=== PATIENT | female | born 1950 | race Hispanic/Latino ===

== ENCOUNTER → 2016-03-19 | Outpatient (CLI) | payer OTHER ==
--- NOTE | 2016-03-23 15:37 | US ---
EXAM DESCRIPTION: US BREAST UNILATERAL CLINICAL HISTORY: Right retroareolar mass COMPARISON: Initial mammogram and ultrasound evaluation from 01/02/2016. FINDINGS: Directed ultrasound examination is performed. Increased vascularity to the retroareolar collection is demonstrated, altered in overall appearance since the prior study, now more homogeneous and Iso to minimally hypoechoic and measuring slightly smaller in size since December. Extensive internal vascularity however is confirmed on evaluation and lack of resolution felt to be significant. A surgical or ultrasound-guided needle biopsy of the area is felt to be appropriate to exclude malignancy as the etiology. These images were initially placed in a cue that did not allow final dictation. A note was attached to the patient's record at the time of review IMPRESSION: Suspicious exam. Retroareolar right breast thickening with lack of resolution despite appropriate antibiotic treatment and followup. RECOMMENDATION: Directed needle versus excisional biopsy. Electronically signed by: Sweta Peters 03/23/2016 15:35
== END ==
LOC: MAMMO 03-19 15:00
PROVIDERS: ATTEND Family Medicine
DX: N63 Unspecified lump in breast (principal)

== ENCOUNTER 2016-04-28 07:15 | Day surgery (SDC) | payer OTHER ==
--- NOTE | 2016-04-24 11:05 | RAD ---
EXAM DESCRIPTION: XR CHEST 2 VIEWS CLINICAL HISTORY: PreOP for surgery 04/28/2016 COMPARISON: None available FINDINGS: The cardiomediastinal silhouette is unremarkable. There is no airspace consolidation or pleural effusion. The bronchovascular markings are within normal limits, and the lungs are not hyperinflated. There is no pneumothorax or acute fracture. Surgical clips in the right upper quadrant are likely related to prior cholecystectomy. IMPRESSION: Negative exam. Electronically signed by: Tom Baptiste DO 04/24/2016 11:04
[~2016-04-28 07:15] MED LIST: LACTATED RINGERS 1,000 ML ONE; SODIUM CHL 0.9% 100ML MINI-BAG 100 ML IVPB ONE; ceFAZolin SODIUM 1 GM VIAL ONE; cefOXitin SODIUM 2 GM INJ IVPB ONE
[2016-04-28] MEDS ORDERED: LIDOCAINE 1% 50 ML VIAL INJ ONE (07:28)
[2016-04-28] MEDS ORDERED: SODIUM BICARBONATE VIAL 50 MEQ/50 ML VIAL ONE (07:29)
[2016-04-28] MEDS ORDERED: fentaNYL CITRATE INJ 50 MCG/ML AMP ONE (08:14)
[2016-04-28] MEDS ORDERED: MIDAZOLAM INJ 5 MG/5 ML VIAL ONE (08:14)
[2016-04-28 10:22] VITALS: O2SAT 98
[2016-04-28 10:25] VITALS: BP 119/76; TEMP 97.6
--- NOTE | 2016-04-28 10:30 | OP ---
DATE OF PROCEDURE: 04/28/16 PREOPERATIVE DIAGNOSIS: 1. Right breast mass. POSTOPERATIVE DIAGNOSIS: 1. Right breast mass. PROCEDURE: 1. Excision of right breast mass. SURGEON: Naren Boudreaux MD DIRECTOR NEWS: None ANESTHESIA: Local infiltration of 1% lidocaine and IV sedation by Anesthesia. INDICATION: The patient is a 66-year-old female who was found on multiple radiologic exams to have a mass in the area of her right breast at approximately the 2 oclock position in the periareolar area. She was treated with antibiotics. It did not resolve. It has spontaneously drained once, but there is still a palpable mass at this area. She was brought to the Surgical Suite today after excision the risks, benefits and alternatives to the procedure were discussed and accepted. FINDINGS: The pathology report is pending. PROCEDURE: After the patient was brought to the Surgical Suite and placed in the supine position, she was prepped and draped in the usual sterile manner. Surgical time-out was taken. At this time, IV sedation was performed. An quarter maier shaped incision was fashioned along the areolar border from approximately the 11:30 position to the 3:30 position. This was done first with a marking pen and then infiltration of anesthesia. The skin was incised with a knife and then dissection beneath the areolar and into the breast was performed using electrocautery. The mass was excised in two pieces and sent for pathologic evaluation. The wound was then irrigated with saline. Hemostasis was obtained with electrocautery. The breast tissue was then reapproximated with interrupted 3-0 Vicryl sutures. The skin edges were approximated with 4-0 Nylon vertical mattress sutures. A sterile pressure dressing was applied. The patient was awakened and taken to the Ambulatory Unit in stable condition. Estimated blood loss was approximately 25 mL. All sponge, needle and instrument counts were correct. #[id number] [facility]
[2016-04-28] MEDS ORDERED: PROPOFOL 200 MG/20 ML VIAL IV ONE (12:00)
[2016-04-28] MEDS ORDERED: LIDOCAINE 1% 10 ML VIAL INJ ONE (12:00)
== END 2016-04-28 10:45 | disposition home or self-care (01) ==
LOC: AMB 07:15
PROVIDERS: ATTEND Surgery
DX: N63 Unspecified lump in breast (principal); F17.210 Nicotine dependence, cigarettes, uncomplicated

== ENCOUNTER → 2017-02-18 | Outpatient (CLI) | payer OTHER ==
--- NOTE | 2017-02-19 12:29 | US ---
EXAM DESCRIPTION: Breast,Right: Ultrasound CLINICAL HISTORY: 66 yearsFemale6 MONTH FOLLOW UP COMPARISON: Digital 3-D tomosynthesis diagnostic mammogram bilateral breast on this visit. Right breast ultrasound 03/19/2016. TECHNIQUE: Transcutaneous scanning of the retroareolar right breast utilizing two-dimensional and Doppler modes. Scanning performed by the local delivery driver and Dr. Cannon. FINDINGS: scanning retroareolar right breast. Typical shadowing from the nipple. Heterogeneous fatty and fibroglandular retroareolar tissues. No discrete solid mass or cyst. No parenchymal edema or large calcification. IMPRESSION: 1. Bi-Rads Category 2: Benign. 2. Please refer to digital 3-D tomosynthesis diagnostic bilateral mammogram and report on this visit. The FINDINGS and the follow-up plan were reviewed in person with the patient after the examination. Written communication explaining the IMPRESSION and follow-up will be mailed to the patient and referring care provider. Electronically signed by: Tj Cannon MD 02/19/2017 12:28 PM RADIATION PHYSICIST
--- NOTE | 2017-02-19 12:30 | MAM ---
EXAM DESCRIPTION: 3D Diagnostic, Bilateral : Digital Mammography. CLINICAL HISTORY: 66 years Female 6 MONTH FOLLOW UP . Benign biopsy retroareolar right breast after abscess treatment. No family history of breast cancer. Postmenopausal. No HRT. COMPARISON: Bilateral 2-D digital diagnostic mammographic examination 01/02/2016. Right breast ultrasound 03/19/2016. Right breast ultrasound following this examination. Reports from prior examinations also reviewed. TECHNIQUE: Bilateral CC, LM, MLO projection full-field images, 3-D tomosynthesis digital mammographic technique. Also bilateral synthesized LM, CC/ MLO full-field images. CAD not utilized. FINDINGS: The breast parenchymal density pattern is: Scattered areas of fibroglandular density. No skin thickening or nipple retraction . Retroareolar density immediately behind the nipple in the right breast is no longer present. Left axillary lymph nodes. Bilateral solitary microcalcifications. No focal, stellate mass or density, focal asymmetry , and no suspicious microcalcifications bilaterally. ULTRASOUND: scanning retroareolar right breast. Typical shadowing from the nipple. Heterogeneous fatty and fibroglandular retroareolar tissues. No discrete solid mass or cyst. No parenchymal edema or large calcification. IMPRESSION: BI-RADS CATEGORY: 2 - BENIGN FINDINGS. FOLLOW UP: Return to routine digital bilateral screening, one year interval from February 2017. The FINDINGS and the follow-up plan were reviewed in person with the patient after the examination. Written communication explaining the IMPRESSION and follow-up will be mailed to the patient and referring care provider. According to the [employer], yearly mammograms are recommended starting at age 40 and continuing as long as a woman is in good health. Any breast change noted on a breast self-exam should be reported promptly to the patient's healthcare provider. Breast MRI is recommended for women with an approximately 20-25% or greater lifetime risk of breast cancer, including women with a strong family history of breast or ovarian cancer and women who have been treated for Hodgkin's disease. A negative mammographic report should not delay tissue diagnosis in patients with significant clinical history or physical findings. Extremely dense breast tissue limits the sensitivity of digital mammography. Electronically signed by: Tj Cannon MD 02/19/2017 12:29 PM [facility]
== END ==
LOC: MAMMO 14:44
PROVIDERS: ATTEND Family Medicine
DX: R92.8 Other abnormal and inconclusive findings on diagnostic imaging of breast (principal)
CPT/HCPCS: 76641; G0204; G0279

== ENCOUNTER 2019-02-20 05:22 | Day surgery (SDC) | payer MEDICARE, MEDICAID ==
[2019-02-20] MEDS ORDERED: MIDAZOLAM INJ 2 MG/2 ML VIAL ONE (10:38)
[2019-02-20] MEDS ORDERED: PROPARACAINE 0.5% OPHTH SOL 15 ML BTTL RIGHT_EYE ONE (10:39)
[2019-02-20] MEDS ORDERED: fentaNYL CITRATE INJ 50 MCG/ML AMP ONE (10:40)
[2019-02-20] MEDS ORDERED: MOXIFLOXACIN HCL (OPHTH) 1 DROP DROPS RIGHT_EYE ONE ×2 (10:47→11:00)
[2019-02-20] MEDS ORDERED: TOBRAMYCIN SULF 0.3 % OPHT SOL 1 DROP RIGHT_EYE ONE ×2 (10:49→11:00)
[2019-02-20] MEDS ORDERED: DEXAMETHASONE 0.1% OPHTH SOL 1 DROP RIGHT_EYE ONE ×2 (10:49→11:00)
[2019-02-20] MEDS ORDERED: BRIMONIDINE 0.2% OPHTH DROPS RIGHT_EYE ONE ×2 (10:50→11:00)
[2019-02-20] MEDS ORDERED: LIDOCAINE 1% MPF 2 ML VIAL INJ ONE (10:50)
== END 2019-02-20 11:42 | disposition home or self-care (01) ==
LOC: AMB 05:22
PROVIDERS: ATTEND Ophthalmology
DX: H25.11 Age-related nuclear cataract, right eye (principal)
CPT/HCPCS: 00142; 66984; J2250; J3010